=== PATIENT | male | born 1965 | race Two or more races ===

== ENCOUNTER 2020-03-02 08:48 | Outpatient (CLI) | payer OTHER | END 2020-03-02 08:56 | disposition home or self-care (01) | LOC: SONOGRAMA 08:48 | PROVIDERS: ATTEND Pathology Anatomic Pathology & Clinical Pathology | DX: C44.212 Basal cell carcinoma of skin of right ear and external auricular canal (principal) ==

== ENCOUNTER 2020-04-16 08:25 | Outpatient (CLI) | payer OTHER | END 2020-04-16 13:27 | disposition home or self-care (01) | LOC: NUCLEAR 08:25 | DX: I20.9 Angina pectoris, unspecified (principal) | CPT/HCPCS: 78452; 93017; A9500; J0153 ==